=== PATIENT | female | born 2000 | race Caucasian/White ===

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

== ENCOUNTER → 2022-08-09 | Outpatient (CLI) | payer OTHER ==
[~2022-08-09] MED LIST changes: +DESVENLAFAXINE50 M3 PO; +LAMOTRIGINE100 M3 PO; +RISPERIDONE3 M2 PO
== END ==
LOC: RAD 14:29
DX: M25.571 Pain in right ankle and joints of right foot (principal)

== ENCOUNTER 2024-05-21 13:56 | Emergency (ER) | payer OTHER ==
[~2024-05-21] VITALS: Ht 165.1 cm; Wt 68.2 kg
[2024-05-21] MEDS ORDERED: DESYREL50 MG PO (14:15)
[2024-05-21] MEDS ORDERED: HYDROXYZINE HCL25 M1 PO (14:16)
[2024-05-21] MEDS ORDERED: Ketorolac 30 MG/ML VIAL IM ONE (14:30)
[2024-05-21 15:30] VITALS: BP 130/75
== END 2024-05-21 15:28 | disposition home or self-care (01) ==
LOC: ED 13:56
DX: N80.9 Endometriosis, unspecified (principal)
CPT/HCPCS: J1885